=== PATIENT | male | born 1985 | race Caucasian/White ===

== ENCOUNTER 2020-11-02 12:04 | Emergency (ER) | payer OTHER, SELFPAY ==
[2020-11-02 12:14] VITALS: BP 183/120; PULSE 72; RESP 18; TEMP 36.6; O2SAT 100
--- NOTE | 2020-11-02 12:37 | ED.GENADULT ---
HPI - General Adult General Chief complaint: Unspecified Stated complaint: 5 days in hosp and out of meds Time Seen by Provider: 11/02/20 12:37 Source: patient and RN notes reviewed Mode of arrival: ambulatory Limitations: no limitations History of Present Illness HPI narrative: 35 year old male presents to city hospital care with stated need for refills on his blood pressure medications with last refills noted on medication history on 09/16/2020 with Atenolol and Insulin lispro filed on 10/19/20. Patient states that he was in the hospital for 5 days at [facility] and the last refills came from hospitalist doctor at [facility]. He states that he use to be under Dr Olivas 's care but he fired him and has not established new provider. Patient has no discharge papers from [facility] and medication history noted from various providers for the past few months. Patient's blood pressure elevated above 180/100 and can not tell when he took last doses of bottles of medications he has. 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 Discussed importance of maintaining PCP to keep medications filled and compliance with medications importance. Patient states that he has anxiety and can't go on internet to find a doctor needs a list so he can call. Related Data Home Medications Medication Instructions Recorded Confirmed atenolol 50 mg PO DAILY 11/02/20 11/02/20 insulin lispro 8 unit SUBCUT TID 11/02/20 11/02/20 tamsulosin 0.4 mg PO DAILY 11/02/20 11/02/20 Allergies Allergy/AdvReac Type Severity Reaction Status Date / Time No Known Allergies Allergy Verified 11/02/20 12:42 Review of Systems Review of Systems: Narrative: CONSTITUTIONAL: Denies fever, chills, or sweats. EYES: Denies visual changes, redness, or discharge. ENT: Denies rhinorrhea, congestion, sore throat, or otalgia. CARDIOVASCULAR: Denies chest pain, palpitations, or edema. RESPIRATORY: Denies cough or dyspnea. GASTROINTESTINAL: Denies abdominal pain, nausea, vomiting, or diarrhea, states past stomach issues but not taking any stomach medicine now, states that his BUN and Creatine were elevated when he was in hospital. GENITOURINARY: Denies dysuria or hematuria. SKIN: Denies rash or itching. MUSCULOSKELETAL: Denies back pain, joint pain, or myalgia. NEUROLOGIC: Denies headache, numbness, or weakness. PSYCHIATRIC: Positive history of anxiety or depression. All systems reviewed & are unremarkable except as noted in HPI and below PMFSH Past Medical History Medical History (Updated 11/02/20 @ 14:00 by Jasmyn Gross NP) Anxiety Diabetes type 1, uncontrolled Hypertension Migraines Surgical History Surgical History (Updated 11/02/20 @ 13:58 by Jasmyn Gross NP) No history of previous surgery Social History Social History (Updated 11/02/20 @ 13:57 by Jasmyn Gross NP) Smoking status: Current every day smoker Tobacco type: cigarettes Alcohol intake: unknown Substance use: current Substance use type: marijuana Gender identity (if verbalized by the patient): Male Comments At time of signature, agree with nursing past medical, surgical, social history. There is no relevant family history pertinent to the presenting complaint Exam Narrative: Exam Narrative: GENERAL:Pale-appearing, failrly-nourished, and in mild acute distress. HEAD: Normocephalic, atraumatic. EYES: PERRLA and EOMI.wears glasses ENT: Nares clear, no rhinorrhea or epistaxis. Mucous membranes moist. NECK: Supple.no lymphadenopathy CHEST: Clear to auscultation. No respiratory distress.SAO2 100% HEART: Regular rate and rhythm. No murmur heard. Normal peripheral pulses. ABDOMEN: Soft, nontender, nondistended, normal active bowel sounds. EXTREMITIES: Normal range of motion. No edema.
[2020-11-02 12:42] VITALS: O2SAT 100
[2020-11-02 12:43] VITALS: BP 183/120; PULSE 72; RESP 18; TEMP 36.6
--- NOTE | 2020-11-02 13:10 | PC.NURSE ---
1300- pt signed medical records release for us to fax over to [facility] in [place]. faxed release over. AGRICULTURE INSTRUCTOR aware.
== END 2020-11-02 13:17 | disposition left against medical advice (07) ==
PROVIDERS: Emergency Provider Registered Nurse
DX: I10 Essential (primary) hypertension (principal); E10.9 Type 1 diabetes mellitus without complications; F17.210 Nicotine dependence, cigarettes, uncomplicated
CPT/HCPCS: 99211; G0463

== ENCOUNTER 2021-02-21 15:00 | Outpatient (RCR) | payer OTHER, SELFPAY ==
--- NOTE | 2021-02-18 14:42 | STOPEVAL ---
SPEECH THERAPY INITIAL EVALUATION AND DISCHARGE: Thank you for referring Juarez Clark to [facility] Upon completion of evaluations, no OP Speech Therapy is deemed necessary. Please review, sign, date and return this plan of care/discharge DEZ. I agree with and certify that the following plan of care is medically necessary. Referring Physician Date Attending Provider: PHYSICIAN NOT ON STAFF Outpatient Past Medical History Past Medical History Source of Past Medical History Patient Neurological History Hx Cerebrovascular Accident (CVA) Yes: (R) Basal Ganglia Hx Migraine Yes Cardiovascular History Hx Hypertension Yes Respiratory History Hx Other Respiratory Disorders Yes: uses an inhaler (new); recent intubation after CVA; c /o SOB Gastrointestinal History Hx Gastroesophageal Reflux Disease Yes Genitourinary History Hx Renal Disease Yes: recent a/w CVA; CKD Musculoskeletal History Hx Other Musculoskeletal Disorders Yes: reports back problems as reason he can't work at previous job Endocrine History Hx Diabetes Yes: Type 1 Hx Insulin Pump Yes Psychosocial History Hx Anxiety Yes Hx Depression Yes Hx Support Problems Yes Hx Other Psychiatric Disorders Yes: on discharge from recent hospitalization, counseling was recommended Evaluation Information Problem Diagnosis CVA Onset November 2020 Additional Evaluation Detail substance abuse-cocaine & marijuana; Inpatient rehab recommended counseling for anxiety. Subjective Information pleasant but labile; pt is Query Text:As Reported By Patient/ able to explain previous Family medications and PMH. Previous Treatments Previous Treatments For This Problem Inpatient rehab at [facility] Prior Level of Function Activity Level (Last 3 Months) Occupation unemployed Hand Dominance Left Driving Yes Home Setting Home Type House Living Situation With Parent Support Available Local Family Support Cargiver Responsibilities Comment Per discharge summary from recent hospitalization: ([facility] ): couch hopper ; lives with dad but its not a permanent thing ; Prior Swallow Level Prior Intake Method Oral Prior Diet Regular (Level 7 Diet) Prior Liquid Consistency
--- NOTE | 2021-02-18 18:09 | PTOPEVAL ---
PHYSICAL THERAPY EVALUATION Thank you for referring Juarez Clark to [facility].? Juarez was evaluated for the dx of CVA. The patient is scheduled to be seen for therapy?2 x/week for 4 weeks. Please review, sign, date and return this plan of care DEZ. I agree with and certify that the following plan of care is medically necessary. Referring Physician Date Attending Provider: Dr. Kamini Purdy *PT Outpatient Evaluation Start: 02/18/21 14:12 Freq: Status: Active Protocol: Document 02/18/21 14:12 MLV (Rec: 02/18/21 15:14 MLV [id number]) Therapy Assessment Status Assessment Status Evaluation Evaluation Information Problem Diagnosis CVA Additional Evaluation Detail Patient reports having a CVA about 2-3months ago and got out of the hospital 1 1/2 wks ago. Patient denies defecits to balance or strength prior to CVA and now has balance deficit and leg weakness with a decrease in endurance. Patient has a treadmill but has not used it yet since CVA. Subjective Information Pt has a hx of illicit drug Query Text:As Reported By Patient/ abuse and reports loss of his Family 2 year old daughter prior to drug addiction. Patient currently is not using drugs. Prior Level of Function Home Setting Home Type House,Multiple Levels Environmental Barriers Railing, Ascend Left Living Situation Alone Support Available Local Family Support Cargiver Responsibilities Comment family helps for transportation Mobility Assistive Devices (Used Last 3 None Months) Pain Assessment Timing of Pain Assessment Timing of Pain Assessment Assessment Self Report Self Report Pain Level 0 Pain Score Pain Score 0: Self Report Lower Extremity Range of Motion General Lower Extremity Range of Motion Reason Not Measured WNL/Left,WNL/Right Lower Extremity Muscle Strength Testing General Lower Extremity Strength Reason Not Measured WNL/Left,WNL/Right Gross Lower Extremity Strength isometric tests 5/5. Hip hike left 3-/5, right 3+/5. Posture Posture Standing Position Posture Evaluation View all Head/C-Spine Posture Forward Head Thoracic Spine Posture Neutral Lumbar Spine Posture Flattened,Decreased Lordosis Shoulder Posture (L) Rounded,(R) Rounded,(L) Forward,(R) Forward Scapula Pos
--- NOTE | 2021-02-25 13:38 | PCPTNOTE ---
Patient did not show up for scheduled appointment this date; called and left voicemail for reminder on next appointment.
--- NOTE | 2021-02-27 09:25 | PCPTNOTE ---
Patient cancelled scheduled appointment this date due to personal request.
--- NOTE | 2021-03-04 15:07 | PCPTNOTE ---
Patient did not show up for scheduled appointment this date; called and left voicemail for next appointment on 03/06/21 @ 2pm.
--- NOTE | 2021-03-06 14:30 | PCPTNOTE ---
Patient did not show up for scheduled appointment this date; left voicemail for reminder call for appointment on the . PT is aware of patient's two no show at this time.
--- NOTE | 2021-03-11 13:48 | PCPTNOTE ---
PHYSICAL THERAPY DISCHARGE Admitting Provider: Attending Provider: PHYSICIAN NOT ON STAFF Patient:Juarez Clark Date of :1985 Patient has not returned for any further treatments since 02/21/2021, therefore he will be discharged at this time. Patient?s initial visit was on 02/18/2021 13:00 and he had a total of 2 visits. The goals have not been met. Thank you for referring this patient to [facility]. Please review, sign, date and return this discharge summary DEZ. I have been updated about the patient's current status and I agree with discharge from the above service at this time. Referring Physician Date
--- NOTE | 2021-03-11 13:49 | PCPTNOTE ---
Patient did not show up for scheduled appointment this date.
== END 2021-03-12 08:14 | disposition home or self-care (01) ==
LOC: ANHPT 15:00
PROVIDERS: PCP Internal Medicine
DX: I63.9 Cerebral infarction, unspecified (principal)
CPT/HCPCS: 92523; 92610; 97110; 97162

== ENCOUNTER 2023-01-16 09:44 | Inpatient (IN) | payer MEDICARE, MEDICAID, SELFPAY ==
[2023-01-16] VITALS (25 sets, daily range): BP systolic 186–230; BP diastolic 92–128; PULSE 77–87; RESP 14–23; TEMP 36–37.2; O2SAT 92–100; BMI 23.9
--- NOTE | ~2023-01-16 | XR_ITS ---
Clinical Indication: Shortness of breath PA and lateral views of the chest: Comparison: None Findings: Tracheostomy cannula and right-sided central venous line are in satisfactory positions. Pro bable minimal bibasilar pulmonary edema, with small bilateral pleural effusions. Cardiomediastinal s ilhouette is prominent. Bones and soft tissues are unremarkable. Impression: Support tubes, as above. Probable minimal bibasilar pulmonary edema, with small bilateral pleural effusions. Reviewed, dictated and finalized at location M. OR BUSINESS OBJECTS DEVELOPER Impression: Support tubes, as above. Probable minimal bibasilar pulmonary edema, with small bilateral pleural effusi ons.
--- NOTE | ~2023-01-16 | CT_ITS ---
EXAMINATION: CT brain wo con DATE: 01/16/2023 11:15 INDICATION: Headache. CHF. End-stage renal disease. CVA TECHNIQUE: Computed tomography (CT) of the head was performed without intravenous contrast. The dose- length product was 605.33 mGy-cm. COMPARISON: None FINDINGS: Mild generalized accelerated atrophy. Paranasal sinuses and mastoids are pneumatized. No de pressed skull fractures. No acute intracranial hemorrhage, infarction, mass or mass effect. IMPRESSION: 1. No acute intracranial abnormality. Reviewed, dictated and finalized at location B. WILL REPRESENTATIVE
--- NOTE | 2023-01-16 09:56 | ECG_ITS ---
Measurements Intervals [place] Rate: 80 P: 57 WY: 96 QRS: -50 QRSD: 117 T: 89 QT: 395 QTc: 457 Interpretive Statements SINUS RHYTHM WITH SHORT WY INTERVAL POSSIBLE LEFT ATRIAL ENLARGEMENT [-0.1mV P WAVE IN V1/V2] LEFT ANTERIOR FASCICULAR BLOCK [QRS AXIS <= -45, QR IN I, RS IN II] NONSPECIFIC T-WAVE ABNORMALITY NO PREVIOUS ECG AVAILABLE FOR COMPARISON Electronically Signed On 01-16-2023 15:30:07 ETL SOFTWARE ENGINEER by Cesar Hernandez M.D.
--- NOTE | 2023-01-16 10:41 | PC.NURSE ---
patient states that he has is out of medicine and cannot afford any right now
--- NOTE | 2023-01-16 10:53 | ED.GENADULT ---
HPI - General Adult General Chief complaint: Shortness of Breath/Dyspnea Stated complaint: missed dialysis, HTN, SOB Time Seen by Provider: 01/16/23 10:28 Source: patient Mode of arrival: ambulatory Limitations: no limitations History of Present Illness HPI narrative: This is a 37-year-old male with PMH of CVA, ESRD, insulin dependent DM, CHF, who presents to the ED with chief complaint of dyspnea and headache x3 days. Patient states he goes to dialysis Mondays, Wednesdays, Fridays. He missed his Thursday dialysis and came to the ED today because of transportation issues. States he has recently switched insurances and he has been unable to get transportation to his dialysis center. He has been out of his medications for several days. He has a tracheostomy that was placed many years ago after complicated intubation. He also states that he feels he needs his tracheostomy cleaned, but has been unable to get any new supplies for this. Also has concerns for high blood pressure. Denies chest pain, fevers, chills, abdominal pain, nausea, vomiting. Related Data Home Medications Medication Instructions Recorded Confirmed atenolol 50 mg tablet 50 mg PO DAILY 11/02/20 11/02/20 insulin lispro 100 unit/mL 8 unit subcut TID 11/02/20 11/02/20 subcutaneous solution tamsulosin 0.4 mg capsule 0.4 mg PO DAILY 11/02/20 11/02/20 Allergies Allergy/AdvReac Type Severity Reaction Status Date / Time No Known Allergies Allergy Verified 11/02/20 12:42 Review of Systems Review of Systems: CONSTITUTIONAL: Denies fever, chills, or sweats. EYES: Denies visual changes, redness, or discharge. ENT: Denies rhinorrhea, congestion, sore throat, or otalgia. CARDIOVASCULAR: Denies chest pain, palpitations, or edema. RESPIRATORY: Endorses dyspnea. Also endorses cough but this is longstanding with tracheostomy tube. GASTROINTESTINAL: Denies abdominal pain, nausea, vomiting, or diarrhea. GENITOURINARY: Denies dysuria or hematuria. SKIN: Denies rash or itching. MUSCULOSKELETAL: Denies back pain, joint pain, or myalgia. NEUROLOGIC: Endorses headache. denies LOC, numbness, dizziness, or weakness. PSYCHIATRIC: Denies anxiety or depression. [facility] Past Medical History Medical History (Updated 01/16/23 @ 12:24 by Sundar Krause PA-C) Anxiety Diabetes type 1, uncontrolled Hypertension Migraines Surgical History Surgical History (Updated 11/02/20 @ 13:58 by Jasmyn Gross NP) No history of previous surgery Social History Social History (Updated 11/02/20 @ 13:57 by Jasmyn Gross NP) Smoking status: Current every day smoker Tobacco type: cigarettes Alcohol intake: unknown Substance use: current Substance use type: marijuana Gender identity (if verbalized by the patient): Male Exam Narrative: GENERAL: Well-appearing, well-nourished, and in no acute distress. HEAD: Normocephalic, atraumatic. EYES: PERRLA and EOMI. ENT: Nares clear, no rhinorrhea or epistaxis. Mucous membranes moist. Oropharynx without tonsillar hypertrophy exudate or other lesions. NECK: Supple. No adenopathy or masses. CHEST: No respiratory distress. No wheezes rales or rhonchi. Crackles heard in the right middle lung field. Breath sounds are distant in the bibasilar lung george. Otherwise breath sounds are intact. He is satting 99% breathing room air through tracheostomy tube. HEART: Regular rate and rhythm. No murmur heard. Normal peripheral pulses. ABDOMEN: Soft, nontender, nondistended, normal active bowel sounds. EXTREMITIES: Normal range of motion. 2+ pitting edema to the midcalf bilaterally. SKIN: Warm, dry, no rash. NEURO: Alert and oriented x3. No focal deficits. Cranial nerves II through XII intact. Coordination intact. PSYCH: Normal mood and affect. Course Course Emergency Course: 1137: Spoke with Dr. Ellis (nephrology) recommends admission for dialysis. He will consult. Vital Signs Vital signs: Vital Signs Temperature
[2023-01-16 11:07] LABS: Glucose Point of Care 221 mg/dl (65-105)
[2023-01-16 11:14] LABS: Basophils Absolute Auto 0.1 K/mm3 (0.0-0.1); Eosinophils Absolute Auto 0.4 K/mm3 (0-0.3); Eosinophils Percent Auto 5.3 % (0-4.4); Hematocrit 26.9 % (42.0-52.0); Hemoglobin 8.6 g/dL (14.0-18.0); Immature Granulocyte Absolute 0.04 K/mm3 (0.00-0.031); Immature Granulocyte Percent A 0.6 % (0-0.5); Lymphocytes Absolute Auto 1.26 K/mm3 (0.9-3.2); Lymphocytes Percent Auto 18.9 % (18.3-44.2); Mean Corpuscular Hemoglobin 28.7 pg (26-34); Mean Corpuscular Volume 89.7 fl (80-100); Mean Platelet Volume 10.7 fl (7.4-10.4); Monocytes Absolute Auto 0.6 K/mm3 (0.1-0.6); Monocytes Percent Auto 8.4 % (2.6-8.5); Neutrophils Absolute Auto 4.3 K/mm3 (1.3-6.7); Neutrophils Percent Auto 64.8 % (45.5-73.1); Platelet Count Result 264 k/mm3 (150-375); Red Cell Distribution Width 14.6 % (11.5-14.5); White Blood Count 6.7 K/mm3 (4.5-10.0)
--- NOTE | 2023-01-16 11:14 | PC.NURSE ---
Patient stated I'm not really homeless, but right now I am living on my jeanna's couch .
--- NOTE | 2023-01-16 11:18 | PC.NURSE ---
Patient arrived with dialysis catheter in right chest intact
--- NOTE | 2023-01-16 11:18 | PC.NURSE ---
report received from Yusef EAGLE at this time including history and physical and plan of care
[2023-01-16] MEDS: METOPROLOL SUCCINATE EXT REL 100 MG TABCR PO (11:41)
[2023-01-16] MEDS: cloNIDine HCL 0.1 MG TABLET PO ×2 (11:41→20:08)
[2023-01-16 11:47] LABS: Alanine Aminotransferase 24 U/L (6-50); Albumin Level 4.5 g/dL (3.5-5.1); Alkaline Phosphatase 117 U/L (38-126); Anion Gap 16 mmol/L (8-16); Aspartate Amino Transferase 35 U/L (17-59); Bilirubin,Total 0.6 mg/dL (0.2-1.3); Blood Urea Nitrogen 105 mg/dL (9-20); Calcium 8.8 mg/dL (8.4-10.2); Carbon Dioxide 22 mmol/L (22-30); Chloride 98 mmol/L (98-107); Estimated CRCL calculation 7 ml/min; Estimated Glomerular Filt Rate 4; Glucose 221 mg/dL (65-110); Potassium 6.3 mmol/L (3.4-5.0); Sodium 136 mmol/L (137-145)
[2023-01-16 12:06] LABS: Influenza A QL RT-PCR Negative (Negative); Influenza B QL RT-PCR Negative (Negative); SARS-CoV-2 RNA PCR Negative
[2023-01-16] MEDS: DEXTROSE 50% 25 GM/50 ML SYRINGE IV PUSH (12:35)
[2023-01-16] MEDS: CALCIUM GLUC 1,000 MG/NS 50 ML 1,000 MG/50 ML BAG 100 MG IVPB (12:36)
[2023-01-16] MEDS: INSULIN HUMAN REGULAR (*BKC) 100 UNITS/ML 9 UNITS IV PUSH (12:36)
--- NOTE | 2023-01-16 12:48 | PC.NURSE ---
Food tray ordered at 1519
--- NOTE | 2023-01-16 13:23 | PC.NURSE ---
Checked on patient, BP elevated at 221/118. Pt eating at this time. No distress Primary nurse and KANCHAN Kwok aware.
--- NOTE | 2023-01-16 14:00 | PC.NURSE ---
Patient to dialysis at this time
[2023-01-16 14:07] LABS: Hepatitis B Surface Antigen Negative (Negative)
[2023-01-16 14:25] LABS: Hepatitis B Surface Anti Res Negative
--- NOTE | 2023-01-16 14:40 | PM.CNNEP ---
Assessment and Plan Assessment and plan (1) End stage renal disease: Code(s): N18.6 - End stage renal disease Status: Chronic Assessment and Plan: HD today and continue M/W/F dialysis schedule plan HD tomorrow since he missed another session earlier this week follow electrolytes, volume status, and clearance (2) Hyperkalemia: Code(s): E87.5 - Hyperkalemia Status: Acute Assessment and Plan: due to missed dialysis treatments HD today and tomorrow should help stabilize this issue follow trend (3) Volume overload: Code(s): E87.70 - Fluid overload, unspecified Status: Acute Assessment and Plan: due to missed dialysis treatments fluid removal today and tomorrow with HD follow volume status (4) Hypertensive urgency: Code(s): I16.0 - Hypertensive urgency Status: Acute Assessment and Plan: due to missed BP medications as well as dialysis home medications resumed fluid rmeoval with dialysis may help adjust/titrate BP medications as needed (5) Anemia: Code(s): D64.9 - Anemia, unspecified Status: Chronic Assessment and Plan: due to ESRD dose with Epogen with HD (once BP comes down) follow H/H (6) Type 1 diabetes mellitus: Code(s): E10.9 - Type 1 diabetes mellitus without complications Status: Chronic Assessment and Plan: follow accuchecks glyceming control per hospitalists Will continue to follow. History of Present Illness Reason for Consult Consult date: 01/16/23 Reason for consult: end stage renal disease Chief Complaint Chief complaint: ESRD,Pleural Effusion,Hyperkalemia,Hyperglycemia History of Present Illness Narrative: The patient is a 37-year-old male with a past medical history as outlined below who presented to [facility] Emergency room for further evaluation of high blood pressure and shortness of breath. The patient reportedly missed his dialysis treatment on Thursday and subsequently today due to transportation issues secondary to a changes in his medical insurance. The change in his medical insurance apparently has also affected his ability to get his prescriptions for his chronic medical issues including his hypertension. He apparently has been out of his blood pressure medication since earlier this week. He has noted that over the course of the last few days he has been more short of breath and having significant headaches which she attributes to his high blood pressure. Given these symptoms, he presented to the emergency room for further assessment. Workup and evaluation emergency room demonstrated his blood pressure to be quite elevated and that greater than 200 systolic range and routine blood test demonstrated labs consistent with his known history of end-stage renal disease although his BUN and creatinine as well as the potassium required elevated presumably secondary to his missed dialysis treatments. A CT scan of his brain did not show any type of acute intracranial abnormality and his chest x-ray showed bibasilar pulmonary edema and small bilateral place using this. He was given medical management for his hyperkalemia and IV medications for his blood pressure and was subsequently admitted to the hospital for urgent hemodialysis an effort to correct his laboratory abnormalities and potentially help his blood pressure as well. At the time of my visit, he is receiving dialysis and appears to be tolerating it fairly well (he was seen on dialysis at 2:30 p.m). Apparently, he has been having ongoing issues with trying to set up transportation for dialysis as apparently he was just hospitalized at [facility] for similar issues and required renal replacement therapy/dialysis to stabilize his volume status and blood pressure prior to discharge. It would seem that prior to discharge, the issues with regard to his living situation and transportation were
[2023-01-16] MEDS: EPOETIN ALFA-EPBX 10,000 UNITS/ML VIAL 10000 UNITS IV PUSH (17:25)
[2023-01-16] MEDS: SODIUM CHLORIDE 0.9% IV 1,000 ML 999 ML IV CONT (17:26)
--- NOTE | 2023-01-16 18:55 | PC.NURSE ---
Patient back from dialysis at this time
--- NOTE | 2023-01-16 19:00 | PM.IMHP ---
H&P: HPI History of Present Illness Date/Time: 01/16/23 19:00 Chief Complaint: High blood pressure and shortness of breath after missing dialysis. Narrative: This is an unfortunate 37-year-old male with history of stroke, type 1 diabetes mellitus, and end-stage renal disease on hemodialysis who presented to the emergency department from home for evaluation of high blood pressure and shortness of breath after missing dialysis. Patient provides the following history. He missed dialysis on Thursday and again this morning due to transportation issues and reportedly he has had issues with his insurance pain for medical car to and from dialysis. He has also had issues filling all of his prescriptions and he has been without medications since Thursday as he cannot afford to have them filled at this time. Over the last couple of days he has become increasingly short of breath and he has a severe, diffuse pounding headache which he attributes to his high blood pressures. His blood pressure has been as high as 230/120 since arrival to the ED. pertinent labs include a sodium of 136, potassium 6.3, BUN 105, creatinine 14.30, glucose 221. Brain CT showed no acute intracranial abnormality. Chest x-ray showed minimal bibasilar pulmonary edema and small bilateral pleural effusions. He was sent for urgent dialysis and reports having 3.5 L taken off today which is typical for him. He continues to have the headache and blood pressures are still over 200 systolic. He denies fever, chills, sweats, cold and flu symptoms, vertigo, focal weakness, paresthesias, facial droop, difficulty speaking and swallowing, chest pain, current shortness of breath, nausea, vomiting, diarrhea, and dysuria. Review of Systems Review of Systems: Twelve systems were reviewed and are negative except for as per HPI. [facility] Past Medical History Medical History (Updated 01/16/23 @ 23:21 by Lydia Sim PA-C) Anxiety (04/2021) Cerebrovascular accident Depression End-stage renal disease on hemodialysis Heart failure, type unknown Hypertension Migraines Retinal detachment Blind in right eye. Type 1 diabetes mellitus Surgical History Surgical History (Updated 01/16/23 @ 23:18 by Lydia Sim PA-C) History of tonsillectomy and adenoidectomy History of tracheostomy (04/2021) Family History Family History Mother Diabetes mellitus Celiac disease Breast cancer Social History Social History (Updated 01/16/23 @ 23:19 by Lydia Sim PA-C) Social History: Surrogate medical decision maker: Neyda Mcdonnell, mother. Code status: Do not resuscitate. Smoking packs per day: 1 Smoking cigarettes per day: 20.0 Years smoked: 19 Smoking pack-years: 19.00 Smoking status: Former smoker Tobacco type: cigarettes Alcohol intake: never Substance use: never Substance use type: marijuana Lack of Transportation: YES Lack of Food: Never True Current Housing: I Do Not Have Housing Concerned About Future Housing: YES Difficulty Paying Gas/Electric Bills: No Difficulty Paying for Meds: YES Currently Unemployed: No Education: Associate Degree Difficulty w/ Childcare or Family Care: No Additional living arrangements comments: Currently staying with a friend in the area. Spiritual care concerns: No Meds Home Medications and Allergies Home Medications Medication Instructions Recorded Confirmed Type alprazolam 1 mg tablet 1 mg PO PRN PRN Anxiety 01/16/23 01/16/23 History aspirin 81 mg tablet,delayed 81 mg PO DAILY 01/16/23 01/16/23 History release atorvastatin 40 mg tablet 40 mg PO DAILY 01/16/23 01/16/23 History clonidine HCl 0.2 mg tablet 0.2 mg PO BID 01/16/23 01/16/23 History furosemide 80 mg tablet 80 mg PO DAILY 01/16/23 01/16/23 History gabapentin 300 mg capsule 300 mg PO DAILY 01/16/23 01/16/23 History hydralazine 100 mg tablet 100 mg PO TID 01/16/23 01/16/23
[2023-01-16] MEDS: LOSARTAN POTASSIUM 50 MG TABLET PO (20:08)
[2023-01-16] MEDS: HYDROcodone/acetaminophen (*CRX) 5-325 MG TABLET 1 TAB PO (20:11)
[2023-01-16 21:20] LABS: Anion Gap 11 mmol/L (8-16); Blood Urea Nitrogen 44 mg/dL (9-20); Carbon Dioxide 30 mmol/L (22-30); Chloride 94 mmol/L (98-107); Estimated CRCL calculation 14 ml/min; Estimated Glomerular Filt Rate 9; Glucose 217 mg/dL (65-110); Potassium 4.5 mmol/L (3.4-5.0); Sodium 135 mmol/L (137-145)
--- NOTE | 2023-01-16 21:49 | PC.NURSE ---
This patient, Juarez Clark, was admitted to IMU Room 206-01 on 01/16/23 at 2115. Patient/family oriented to hospital policies and general routines including ID bracelet, bed and alarms, visiting hours, pain management, procedures, bathroom and other care routines, personal items, smoking policy, room service/diet, and visiting hours. Information on how to activate the Rapid Response Team has been discussed. Patient/Family are encouraged to report perceived risks to care and to ask questions if they do not understand what they are told or what they should do.
[2023-01-16 23:46] LABS: Glucose Point of Care 371 mg/dl (65-105)
[2023-01-17] VITALS (27 sets, daily range): BP systolic 156–214; BP diastolic 11–120; PULSE 68–88; RESP 16–20; TEMP 35.9–36.9; O2SAT 91–97
--- NOTE | 2023-01-17 00:11 | PC.NURSE ---
Blood cultures ordered due to patient being admitted with an indwelling dialysis catheter. Patient refuses cultures. POC [id number], Lydia HEMPHILL notified, see orders.
[2023-01-17] MEDS: INSULIN ASPART (*BKC) 100 UNITS/ML 8 UNITS SUB-Q (00:32)
[2023-01-17] MEDS: TOPIRAMATE 25 MG TABLET 50 MG PO ×3 (00:32→21:00)
[2023-01-17] MEDS: INSULIN GLARGINE (*BKC) 100 UNITS/ML 12 UNITS SUB-Q ×2 (00:33→21:01)
--- NOTE | 2023-01-17 04:28 | PC.NURSE ---
Patient is refusing AM lab draw. States he was told he is getting dialysis today, and if they need labs, they can draw them from his dialysis access. Advised the MD is going to want to see the labs before getting dialysis, but the patient continues to refuse.
[2023-01-17 06:37] LABS: Glucose Point of Care 76 mg/dl (65-105)
[2023-01-17 08:11] LABS: Glucose Point of Care 122 mg/dl (65-105)
[2023-01-17] MEDS: GABAPENTIN 300 MG CAPSULE PO (08:37)
[2023-01-17] MEDS: SEVELAMER CARBONATE 800 MG TABLET PO ×3 (08:37→16:57)
[2023-01-17] MEDS: minoxidiL 2.5 MG TABLET 5 MG PO ×2 (08:37→16:58)
[2023-01-17] MEDS: cloNIDine HCL 0.2 MG TABLET PO ×2 (08:38→16:59)
[2023-01-17] MEDS: ATORVASTATIN 40 MG TABLET PO (08:38)
[2023-01-17] MEDS: NIFEdipine 30 MG TAB.ER.24 60 MG PO (08:38)
[2023-01-17] MEDS: hydrALAZINE HCL 50 MG TABLET 100 MG PO ×3 (08:38→16:59)
[2023-01-17] MEDS: ASPIRIN 81 MG ENTERIC TABLET PO (08:39)
[2023-01-17] MEDS: METOPROLOL SUCCINATE EXT REL 100 MG TABCR PO (08:39)
[2023-01-17] MEDS: LOSARTAN POTASSIUM 50 MG TABLET PO (08:39)
[2023-01-17] MEDS: hydrOXYzine pamoate 25 MG CAPSULE PO (08:39)
[2023-01-17] MEDS: FUROSEMIDE 80 MG TABLET PO (08:40)
[2023-01-17 10:07] LABS: Alanine Aminotransferase 23 U/L (6-50); Albumin Level 3.8 g/dL (3.5-5.1); Alkaline Phosphatase 107 U/L (38-126); Anion Gap 10 mmol/L (8-16); Aspartate Amino Transferase 27 U/L (17-59); Bilirubin,Total 0.5 mg/dL (0.2-1.3); Blood Urea Nitrogen 54 mg/dL (9-20); Calcium 7.9 mg/dL (8.4-10.2); Carbon Dioxide 30 mmol/L (22-30); Chloride 96 mmol/L (98-107); Estimated CRCL calculation 12 ml/min; Estimated Glomerular Filt Rate 7; Glucose 176 mg/dL (65-110); Potassium 5.1 mmol/L (3.4-5.0); Sodium 136 mmol/L (137-145)
[2023-01-17 10:20] LABS: Hematocrit 26.6 % (42.0-52.0); Hemoglobin 8.5 g/dL (14.0-18.0); Mean Corpuscular Hemoglobin 28.9 pg (26-34); Mean Corpuscular Volume 90.5 fl (80-100); Mean Platelet Volume 10.8 fl (7.4-10.4); Platelet Count Result 271 k/mm3 (150-375); Red Blood Count 2.94 M/mm3 (4.6-6.20); Red Cell Distribution Width 14.9 % (11.5-14.5); White Blood Count 5.9 K/mm3 (4.5-10.0)
[2023-01-17] MEDS: EPOETIN ALFA-EPBX 10,000 UNITS/ML VIAL 10000 UNITS IV PUSH (11:17)
[2023-01-17] MEDS: SODIUM CHLORIDE 0.9% IV 1,000 ML 999 ML IV CONT (11:18)
[2023-01-17 11:28] LABS: Hemoglobin A1C 8.8 % (<5.7)
--- NOTE | 2023-01-17 11:54 | PM.IMPN ---
Progress Note: A&P Assessment and Plan (1) Volume overload: Code(s): E87.70 - Fluid overload, unspecified Status: Acute (2) Hypertensive urgency: Code(s): I16.0 - Hypertensive urgency Status: Acute (3) Heart failure, type unknown: Code(s): I50.9 - Heart failure, unspecified Status: Acute (4) Hyperkalemia: Code(s): E87.5 - Hyperkalemia Status: Acute (5) End-stage renal disease on hemodialysis: Code(s): N18.6 - End stage renal disease; Z99.2 - Dependence on renal dialysis Status: Acute (6) Type 1 diabetes mellitus: Code(s): E10.9 - Type 1 diabetes mellitus without complications Status: Acute Plan The patient presented to the emergency department with shortness of breath and high blood pressure after missing 2 dialysis sessions. Labs, imaging, EKG, and all reports were personally reviewed. Potassium was 6.1 on arrival and he was sent for urgent dialysis. He has since returned from dialysis and they removed 3.5 L of fluid. Electrolytes have since normalized. He continues to complain of the severe, diffuse headache and blood pressures remain over 200 systolic. As per HPI he has been out of his medications since Thursday and he will be given doses of his antihypertensives this evening to get his blood pressure down. Continue basal insulin. Initiate sliding scale insulin, Accu-Cheks, and hypoglycemic protocol. Check hemoglobin A1c. The rest of his home medications will be reviewed and resumed as appropriate. Subjective Date/time seen: 01/17/23 11:54 Feeling better Exam Narrative: General: Chronically ill-appearing gentleman sitting up in bed in no acute distress. Weight: 75.7 kg. BMI: 23.9. HEENT: PERRL, EOMI. Sclera anicteric. Oral mucosa moist. Neck: Supple. Tracheostomy in place. Respiratory: Respirations are nonlabored and he is speaking in full sentences. Lung sounds are a bit diminished at the bases but are otherwise clear to auscultation. Cardiovascular: Regular rate and rhythm with S1-S2. Chest: Dialysis catheter in the right anterior chest. Gastrointestinal: Abdomen is soft, nontender, and nondistended with positive bowel sounds. Skin: Warm and dry. No rash or lesions on limited exam. Extremities: No cyanosis or clubbing. 2+ pitting edema up to the knees. No palpable knots or cords. Peripheral pulses palpable. Neurological: Alert. Cranial nerves 2-12 are grossly intact.No gross focal deficits to casual conversation. Psychiatric: Pleasant and cooperative with normal mood and affect. Judgment and insight intact. Objective Data Vital Signs Vital Signs: Vital Signs - 24 hr 01/16/23 13:20 01/16/23 14:24 01/16/23 14:14 Temperature 98.3 F Pulse Rate 79 77 78 Respiratory Rate 17 16 Blood Pressure 221/118 H 215/122 H 210/122 H Pulse Oximetry 92 Oxygen Delivery 01/16/23 14:40 01/16/23 15:00 01/16/23 15:20 Temperature Pulse Rate 78 79 78 Respiratory Rate Blood Pressure 198/114 H 196/111 H 191/112 H Pulse Oximetry Oxygen Delivery 01/16/23 15:40 01/16/23 16:00 01/16/23 16:20 Temperature Pulse Rate 79 79 78 Respiratory Rate Blood Pressure 209/114 H 211/119 H 205/113 H Pulse Oximetry Oxygen Delivery 01/16/23 16:40 01/16/23 17:00 01/16/23 17:20 Temperature Pulse Rate 78 79 81 Respiratory Rate Blood Pressure 199/116 H 202/119 H 223/123 H Pulse Oximetry Oxygen Delivery 01/16/23 17:40 01/16/23 18:00 01/16/23 18:20 Temperature Pulse Rate 79 85 84 Respiratory Rate Blood Pressure 211/122 H 210/128 H 205/112 H Pulse Oximetry Oxygen Delivery 01/16/23 18:27 01/16/23 18:59 01/16/23 21:15 Temperature 98.2 F 97.4 F L Pulse Rate 84 86 82 Respiratory Rate 14 20 Blood Pressure 210/119 H 204/116 H 202/102 H Pulse Oximetry 93 Oxygen Delivery 01/16/23 23:05 01/16/23 22:00 01/16/23 22:00 Temperature 97.6 F Pulse Rate 82 84 Respiratory Rate 18 B
--- NOTE | 2023-01-17 12:00 | P.PNNP_ITS ---
Progress Note: A&P Assessment and Plan (1) End stage renal disease: Code(s): N18.6 - End stage renal disease Status: Chronic Assessment and Plan: * HD today * plan next HD session on Thursday and continue // dialysis schedule * follow electrolytes, volume status, and clearance * patient care director/social work consult to help with transportation issues to outpatient dialysis (2) Hyperkalemia: Code(s): E87.5 - Hyperkalemia Status: Acute Assessment and Plan: * resolved * due to missed dialysis treatments * HD today and yesterdday should help stabilize this issue * follow trend (3) Volume overload: Code(s): E87.70 - Fluid overload, unspecified Status: Acute Assessment and Plan: * improving * due to missed dialysis treatments * fluid removal today and yesterday with HD * follow volume status (4) Hypertensive urgency: Code(s): I16.0 - Hypertensive urgency Status: Acute Assessment and Plan: * beter * due to missed BP medications as well as dialysis * home medications resumed * fluid rmeoval with dialysis may help * adjust/titrate BP medications as needed - will increase nifedipine to 90mg qday (5) Anemia: Code(s): D64.9 - Anemia, unspecified Status: Chronic Assessment and Plan: * due to ESRD * dose with Epogen with HD * follow H/H (6) Type 1 diabetes mellitus: Code(s): E10.9 - Type 1 diabetes mellitus without complications Status: Chronic Assessment and Plan: * follow accuchecks * glyceming control per hospitalists Will continue to follow. Subjective Date/time seen: 01/17/23 12:00 Tolerated dialysis treatment yesterday as well as at the time of my visit (seen on HD at 11:50AM); breathing/respiratory status remains relatively stable; BP still somewhat erratic but better in comparison to admission; major complaint currently is that of a headache. Exam Narrative: General: WD/WN male in NAD Heart: normal S1 and S2; no rub Lungs: decrease at bases Abdomen: soft, nontender, nondistended, positive bowel sounds Extremities: no cyanosis or clubbing; no edema Skin: warm and dry Objective Data Vital Signs Vital Signs: Vital Signs Temp Pulse Resp BP Pulse Ox O2 Del Method O2 Flow Rate 01/17/23 12:00 98.5 F 78 20 185/11 H 91 01/17/23 11:50 77 179/98 H 01/17/23 11:30 77 167/86 H 01/17/23 11:10 81 172/74 H 01/17/23 10:50 80 174/106 H 01/17/23 10:30 79 177/98 H 01/17/23 10:10 78 173/98 H 01/17/23 09:50 81 206/120 H 01/17/23 09:30 78 194/116 H 01/17/23 08:55 98.3 F 78 17 214/101 H 01/17/23 09:06 79 204/120 H 01/17/23 08:39 68 01/17/23 08:00 98.2 F 80 16 199/113 H 97 01/17/23 06:00 88 01/17/23 04:00 93 Room Air 01/17/23 04:00 79 01/17/23 04:00 97.5 F L 81 20 195/86 H 93 01/17/23 02:00 82 01/17/23 00:00 94 Room Air 01/17/23 00:00 78 01/16/23 22:00 93 Room Air 01/16/23 22:00 84 01/16/23 23:05 97.6 F 82 18 186/92 H 94 01/16/23 21:15 97.4 F L 82 20 202/102 H 93 01/16/23
--- NOTE | 2023-01-17 12:00 | PM.PNNEP ---
Progress Note: A&P Assessment and Plan (1) End stage renal disease: Code(s): N18.6 - End stage renal disease Status: Chronic Assessment and Plan: HD today plan next HD session on Thursday and continue // dialysis schedule follow electrolytes, volume status, and clearance respite care provider/social work consult to help with transportation issues to outpatient dialysis (2) Hyperkalemia: Code(s): E87.5 - Hyperkalemia Status: Acute Assessment and Plan: resolved due to missed dialysis treatments HD today and yesterdday should help stabilize this issue follow trend (3) Volume overload: Code(s): E87.70 - Fluid overload, unspecified Status: Acute Assessment and Plan: improving due to missed dialysis treatments fluid removal today and yesterday with HD follow volume status (4) Hypertensive urgency: Code(s): I16.0 - Hypertensive urgency Status: Acute Assessment and Plan: beter due to missed BP medications as well as dialysis home medications resumed fluid rmeoval with dialysis may help adjust/titrate BP medications as needed - will increase nifedipine to 90mg qday (5) Anemia: Code(s): D64.9 - Anemia, unspecified Status: Chronic Assessment and Plan: due to ESRD dose with Epogen with HD follow H/H (6) Type 1 diabetes mellitus: Code(s): E10.9 - Type 1 diabetes mellitus without complications Status: Chronic Assessment and Plan: follow accuchecks glyceming control per hospitalists Will continue to follow. Subjective Date/time seen: 01/17/23 12:00 Tolerated dialysis treatment yesterday as well as at the time of my visit (seen on HD at 11:50AM); breathing/respiratory status remains relatively stable; BP still somewhat erratic but better in comparison to admission; major complaint currently is that of a headache. Exam Narrative: General: WD/WN male in NAD Heart: normal S1 and S2; no rub Lungs: decrease at bases Abdomen: soft, nontender, nondistended, positive bowel sounds Extremities: no cyanosis or clubbing; no edema Skin: warm and dry Objective Data Vital Signs Vital Signs: Vital Signs Temp Pulse Resp BP Pulse Ox O2 Del Method O2 Flow Rate 01/17/23 12:00 98.5 F 78 20 185/11 H 91 01/17/23 11:50 77 179/98 H 01/17/23 11:30 77 167/86 H 01/17/23 11:10 81 172/74 H 01/17/23 10:50 80 174/106 H 01/17/23 10:30 79 177/98 H 01/17/23 10:10 78 173/98 H 01/17/23 09:50 81 206/120 H 01/17/23 09:30 78 194/116 H 01/17/23 08:55 98.3 F 78 17 214/101 H 01/17/23 09:06 79 204/120 H 01/17/23 08:39 68 01/17/23 08:00 98.2 F 80 16 199/113 H 97 01/17/23 06:00 88 01/17/23 04:00 93 Room Air 01/17/23 04:00 79 01/17/23 04:00 97.5 F L 81 20 195/86 H 93 01/17/23 02:00 82 01/17/23 00:00 94 Room Air 01/17/23 00:00 78 01/16/23 22:00 93 Room Air 01/16/23 22:00 84 01/16/23 23:05 97.6 F 82 18 186/92 H 94 01/16/23 21:15 97.4 F L 82 20 202/102 H 93 01/16/23 18:59 98.2 F 86 14 204/116 H 01/16/23 18:27 84 210/119 H 01/16/23 18:20 84 205/112 H 01/16/23 18:00 85 210/128 H 01/16/23 17:40 79 211/122 H 01/16/23 17:20 81 223/123 H 01/16/23 17:00 79 202/119 H 01/16/23 16:40 78 199/116 H 01/16/23 16:20 78 205/113 H 01/16/23 16:00 79 211/119 H 01/16/23 15:40 79 209/114 H 01/16/23 15:20 78 191/112 H 01/16/23 15:00 79 196/111 H 01/16/23 14:40 78 198/114 H Intake/Output Intake/Output: Intake & Output 01/14/23 01/15/23 01/16/23 01/17/23 23:59 23:59 23:59 23:59 Intake Total 150 240 Output Total 3500 3000 Balance -1912 -0325 Meds/Results Medications: Active Medications Gener
[2023-01-17 12:03] LABS: Free T4 Free Thyroxine Reflex 0.96 ng/dL (0.78-2.19)
[2023-01-17 12:53] LABS: Glucose Point of Care 225 mg/dl (65-105)
[2023-01-17 13:06] LABS: Total Triiodothyronine (T3) 0.87 NG/ML (0.97-1.69)
[2023-01-17] MEDS: INSULIN ASPART (*BKC) 100 UNITS/ML SUB-Q ×2 (16:55→16:56)
[2023-01-17 16:56] LABS: Glucose Point of Care 314 mg/dl (65-105)
[2023-01-17 20:22] LABS: Glucose Point of Care 198 mg/dl (65-105)
[2023-01-17] MEDS: ALPRAZolam (*CRX) 0.5 MG TABLET 1 MG PO (21:04)
--- NOTE | 2023-01-17 21:47 | PC.NURSE ---
Patient refusing subcut Heparin for DVT prophylaxis.
[2023-01-18] VITALS (14 sets, daily range): BP systolic 144–187; BP diastolic 82–107; PULSE 70–76; RESP 14–20; TEMP 36.1–36.9; O2SAT 92–98
[2023-01-18] MEDS: INSULIN GLARGINE (*BKC) 100 UNITS/ML 12 UNITS SUB-Q (07:52)
[2023-01-18] MEDS: INSULIN ASPART (*BKC) 100 UNITS/ML SUB-Q ×4 (07:53→17:34)
[2023-01-18] MEDS: METOPROLOL SUCCINATE EXT REL 100 MG TABCR PO (07:54)
[2023-01-18] MEDS: SEVELAMER CARBONATE 800 MG TABLET PO ×3 (07:55→17:10)
[2023-01-18] MEDS: LOSARTAN POTASSIUM 50 MG TABLET PO (07:55)
[2023-01-18] MEDS: TOPIRAMATE 25 MG TABLET 50 MG PO ×2 (07:55→20:02)
[2023-01-18] MEDS: NIFEdipine 30 MG TAB.ER.24 60 MG PO (07:55)
[2023-01-18] MEDS: cloNIDine HCL 0.2 MG TABLET PO ×2 (07:56→17:09)
[2023-01-18] MEDS: hydrOXYzine pamoate 25 MG CAPSULE PO (07:56)
[2023-01-18] MEDS: GABAPENTIN 300 MG CAPSULE PO (07:56)
[2023-01-18] MEDS: hydrALAZINE HCL 50 MG TABLET 100 MG PO ×3 (07:56→17:09)
[2023-01-18] MEDS: minoxidiL 2.5 MG TABLET 5 MG PO ×2 (07:56→17:10)
[2023-01-18] MEDS: ATORVASTATIN 40 MG TABLET PO (07:56)
[2023-01-18] MEDS: FUROSEMIDE 80 MG TABLET PO (07:56)
[2023-01-18] MEDS: ASPIRIN 81 MG ENTERIC TABLET PO (07:57)
[2023-01-18 08:09] LABS: Glucose Point of Care 229 mg/dl (65-105)
--- NOTE | 2023-01-18 10:51 | PC.NURSE ---
0930: Patient refused blood draw. States, 'I know what I am doing .
--- NOTE | 2023-01-18 11:28 | PM.IMPN ---
Progress Note: A&P Assessment and Plan (1) Volume overload: Code(s): E87.70 - Fluid overload, unspecified Status: Acute Assessment and Plan: Continue hemodialysis as needed. (2) Hypertensive urgency: Code(s): I16.0 - Hypertensive urgency Status: Acute Assessment and Plan: Improved after starting hemodialysis (3) Heart failure, type unknown: Code(s): I50.9 - Heart failure, unspecified Status: Acute (4) Hyperkalemia: Code(s): E87.5 - Hyperkalemia Status: Acute Assessment and Plan: Monitor electrolytes (5) End-stage renal disease on hemodialysis: Code(s): N18.6 - End stage renal disease; Z99.2 - Dependence on renal dialysis Status: Acute (6) Type 1 diabetes mellitus: Code(s): E10.9 - Type 1 diabetes mellitus without complications Status: Chronic Subjective Date/time seen: 01/18/23 11:28 Feeling better Exam Narrative: General: Chronically ill-appearing gentleman sitting up in bed in no acute distress. Weight: 75.7 kg. BMI: 23.9. HEENT: PERRL, EOMI. Sclera anicteric. Oral mucosa moist. Neck: Supple. Tracheostomy in place. Respiratory: Respirations are nonlabored and he is speaking in full sentences. Lung sounds are a bit diminished at the bases but are otherwise clear to auscultation. Cardiovascular: Regular rate and rhythm with S1-S2. Chest: Dialysis catheter in the right anterior chest. Gastrointestinal: Abdomen is soft, nontender, and nondistended with positive bowel sounds. Skin: Warm and dry. No rash or lesions on limited exam. Extremities: No cyanosis or clubbing. 2+ pitting edema up to the knees. No palpable knots or cords. Peripheral pulses palpable. Neurological: Alert. Cranial nerves 2-12 are grossly intact.No gross focal deficits to casual conversation. Psychiatric: Pleasant and cooperative with normal mood and affect. Judgment and insight intact. Objective Data Vital Signs Vital Signs: Vital Signs - 24 hr 01/17/23 11:30 01/17/23 11:50 01/17/23 12:06 Temperature Pulse Rate 77 77 78 Respiratory Rate Blood Pressure 167/86 H 179/98 H 160/102 H Pulse Oximetry Oxygen Delivery Oxygen Flow Rate Fraction of Inspired Oxygen 01/17/23 12:15 01/17/23 12:00 01/17/23 13:30 Temperature 98.1 F 98.5 F Pulse Rate 78 78 Respiratory Rate 16 20 Blood Pressure 168/106 H 185/11 H Pulse Oximetry 91 95 Oxygen Delivery High Flow Therapy with Tr Oxygen Flow Rate 30 Fraction of Inspired Oxygen 21 01/17/23 12:00 01/17/23 14:00 01/17/23 16:00 Temperature 98.3 F Pulse Rate 77 78 73 Respiratory Rate 20 Blood Pressure 172/100 H Pulse Oximetry 97 Oxygen Delivery Oxygen Flow Rate Fraction of Inspired Oxygen 01/17/23 12:00 01/17/23 16:00 01/17/23 16:00 Temperature Pulse Rate 78 73 73 Respiratory Rate 18 20 Blood Pressure Pulse Oximetry 97 96 Oxygen Delivery High Flow Therapy with Tr High Flow Therapy with Tr Oxygen Flow Rate 0 0 Fraction of Inspired Oxygen 21 01/17/23 20:04 01/17/23 20:00 01/17/23 20:00 Temperature 97.3 F L Pulse Rate 74 75 Respiratory Rate 20 Blood Pressure 156/95 H Pulse Oximetry 96 91 Oxygen Delivery Room Air Oxygen Flow Rate Fraction of Inspired Oxygen 01/17/23 20:00 01/17/23 22:00 01/17/23 23:21 Temperature 97.3 F L Pulse Rate 75 75 Respiratory Rate 16 Blood Pressure 159/89 H Pulse Oximetry 91 94 Oxygen Delivery Room Air Oxygen Flow Rate Fraction of Inspired Oxygen 01/18/23 00:00 01/18/23 00:00 01/18/23 02:00 Temperature Pulse Rate 72 71 Respiratory Rate Blood Pressure Pulse Oximetry 94 Oxygen Delivery Room Air Oxygen Flow Rate Fraction of Inspired Oxygen 01/18/23 03:42 01/18/23 04:00 01/18/23 04:00 Temperature 97.0 F L Pulse Rate 73 73 Respiratory Rate 14 Blood Pressure 179/88 H Pulse Oximetry 92 94 Oxygen Delivery Room
[2023-01-18 12:02] LABS: Glucose Point of Care 159 mg/dl (65-105)
--- NOTE | 2023-01-18 12:47 | PM.PNNEP ---
Progress Note: A&P Assessment and Plan (1) End stage renal disease: Code(s): N18.6 - End stage renal disease Status: Chronic Assessment and Plan: HD tomorrow and continue M/W/F dialysis schedule follow electrolytes, volume status, and clearanc (2) Hyperkalemia: Code(s): E87.5 - Hyperkalemia Status: Acute Assessment and Plan: resolved due to missed dialysis treatments HD treatmens have stabilizd e this issue follow trend (3) Volume overload: Code(s): E87.70 - Fluid overload, unspecified Status: Acute Assessment and Plan: improving due to missed dialysis treatments fluid removal with dialysis follow volume status (4) Hypertensive urgency: Code(s): I16.0 - Hypertensive urgency Status: Acute Assessment and Plan: better due to missed BP medications as well as dialysis home medications resumed fluid rmeoval with dialysis may help adjust/titrate BP medications as needed - increased nifedipine to 90mg qday today (5) Anemia: Code(s): D64.9 - Anemia, unspecified Status: Chronic Assessment and Plan: due to ESRD dose with Epogen with HD follow H/H (6) Type 1 diabetes mellitus: Code(s): E10.9 - Type 1 diabetes mellitus without complications Status: Chronic Assessment and Plan: follow accuchecks glyceming control per hospitalists Will continue to follow. Subjective Date/time seen: 01/18/23 12:47 Tolerated dialysis treatment yesterday without any issues or problems; seem frustrated by his situation (issues with travel to dialysis, lack of medications, no current home...etc); no apparent distress voiced at the time of my visit; BP still fluctuating (although stress may be playing a role). Exam Narrative: General: WD/WN male in NAD Heart: normal S1 and S2; no rub Lungs: decrease at bases Abdomen: soft, nontender, nondistended, positive bowel sounds Extremities: no cyanosis or clubbing; no edema Skin: warm and intact Objective Data Vital Signs Vital Signs: Vital Signs Temp Pulse Resp BP Pulse Ox O2 Del Method O2 Flow Rate 01/18/23 12:00 75 14 Room Air 01/18/23 12:00 75 01/18/23 12:00 98.5 F 76 20 187/107 H 98 01/18/23 08:00 75 16 Room Air 01/18/23 10:00 75 01/18/23 08:00 73 01/18/23 08:00 97.5 F L 70 16 177/82 H 97 01/18/23 08:18 96 Room Air 01/18/23 07:54 71 01/18/23 06:00 71 01/18/23 04:00 94 Room Air 01/18/23 04:00 73 01/18/23 03:42 97.0 F L 73 14 179/88 H 92 01/18/23 02:00 71 01/18/23 00:00 94 Room Air 01/18/23 00:00 72 01/17/23 23:21 97.3 F L 75 16 159/89 H 94 01/17/23 22:00 75 01/17/23 20:00 91 Room Air 01/17/23 20:00 75 01/17/23 20:00 97.3 F L 74 20 156/95 H 91 01/17/23 20:04 96 Room Air 01/17/23 16:00 73 20 96 High Flow Therapy with Tr 0 01/17/23 16:00 73 01/17/23 16:00 98.3 F 73 20 172/100 H 97 Intake/Output Intake/Output: Intake & Output 01/15/23 01/16/23 01/17/23 01/18/23 23:59 23:59 23:59 23:59 Intake Total 527 709 5820 Output Total 3500 3000 Balance -3350 -2040 1030 Meds/Results Medications: Active Medications Generic Name Dose Route Start Last Admin Trade Name David PRN Reason Stop Dose Admin Acetaminophen 650 mg 01/16/23 23:24 Acetaminophen 325 Mg Tablet PO Q6H PRN Mild Pain (1-3) or Fever Alprazolam 1 mg 01/16/23 23:26 01/17/23 21:04 Alprazolam (*Crx) 0.5 Mg Tablet PO 1 mg BID PRN Administration Anxiety Aspirin 81 mg 01/17/23 09:00 01/18/23 07:57 Aspirin 81 Mg Enteric Tablet PO 81 mg DAILY YOLANDA Administration Atorvastatin Calcium 40 mg 01/17/23 09:00 01/18/23 07:56 Atorvastatin 40 Mg Tablet PO 40 mg DAILY YOLANDA Administration Clonidine HCl 0.2 mg
--- NOTE | 2023-01-18 12:47 | P.PNNP_ITS ---
Progress Note: A&P Assessment and Plan (1) End stage renal disease: Code(s): N18.6 - End stage renal disease Status: Chronic Assessment and Plan: * HD tomorrow and continue M/W/F dialysis schedule * follow electrolytes, volume status, and clearanc (2) Hyperkalemia: Code(s): E87.5 - Hyperkalemia Status: Acute Assessment and Plan: * resolved * due to missed dialysis treatments * HD treatmens have stabilizd e this issue * follow trend (3) Volume overload: Code(s): E87.70 - Fluid overload, unspecified Status: Acute Assessment and Plan: * improving * due to missed dialysis treatments * fluid removal with dialysis * follow volume status (4) Hypertensive urgency: Code(s): I16.0 - Hypertensive urgency Status: Acute Assessment and Plan: * better * due to missed BP medications as well as dialysis * home medications resumed * fluid rmeoval with dialysis may help * adjust/titrate BP medications as needed - increased nifedipine to 90mg qday today (5) Anemia: Code(s): D64.9 - Anemia, unspecified Status: Chronic Assessment and Plan: * due to ESRD * dose with Epogen with HD * follow H/H (6) Type 1 diabetes mellitus: Code(s): E10.9 - Type 1 diabetes mellitus without complications Status: Chronic Assessment and Plan: * follow accuchecks * glyceming control per hospitalists Will continue to follow. Subjective Date/time seen: 01/18/23 12:47 Tolerated dialysis treatment yesterday without any issues or problems; seem frustrated by his situation (issues with travel to dialysis, lack of medications, no current home...etc); no apparent distress voiced at the time of my visit; BP still fluctuating (although stress may be playing a role). Exam Narrative: General: WD/WN male in NAD Heart: normal S1 and S2; no rub Lungs: decrease at bases Abdomen: soft, nontender, nondistended, positive bowel sounds Extremities: no cyanosis or clubbing; no edema Skin: warm and intact Objective Data Vital Signs Vital Signs: Vital Signs Temp Pulse Resp BP Pulse Ox O2 Del Method O2 Flow Rate 01/18/23 12:00 75 14 Room Air 01/18/23 12:00 75 01/18/23 12:00 98.5 F 76 20 187/107 H 98 01/18/23 08:00 75 16 Room Air 01/18/23 10:00 75 01/18/23 08:00 73 01/18/23 08:00 97.5 F L 70 16 177/82 H 97 01/18/23 08:18 96 Room Air 01/18/23 07:54 71 01/18/23 06:00 71 01/18/23 04:00 94 Room Air 01/18/23 04:00 73 01/18/23 03:42 97.0 F L 73 14 179/88 H 92 01/18/23 02:00 71 01/18/23 00:00 94 Room Air 01/18/23 00:00 72 01/17/23 23:21 97.3 F L 75 16 159/89 H 94 01/17/23 22:00 75 01/17/23 20:00 91 Room Air 01/17/23 20:00 75 01/17/23 20:00 97.3 F L 74 20 156/95 H 91 01/17/23 20:04 96 Room Air 01/17/23 16:00 73 20 96 High Flow Therapy with Tr 0 01/17/23 16:00 73 01/17/23 16:00 98.3 F 73 20 172/100 H 97 Intake/Output Intake/Output: Intake & Output
[2023-01-18 16:44] LABS: Glucose Point of Care 169 mg/dl (65-105)
--- NOTE | 2023-01-18 17:41 | PC.NURSE ---
Patient took off telemetry box and refusing staff to place monitor back on. Has orders for telemetry so I contacted Hospitalist Dr. Cao and made him aware that patient will not wear telemetry box and is refusing medications.
[2023-01-18 20:10] LABS: Glucose Point of Care 241 mg/dl (65-105)
--- NOTE | 2023-01-18 20:24 | PC.NURSE ---
Patient still refusing to wear tele monitor this shift. Patient also refusing heparin for DVT prophylaxis. Pt educated on need for interventions and risks of refusal. Patient still refused. Lydia notified.
[2023-01-18] MEDS: ALPRAZolam (*CRX) 0.5 MG TABLET 1 MG PO (21:32)
[2023-01-19] VITALS (22 sets, daily range): BP systolic 109–171; BP diastolic 54–99; PULSE 69–79; RESP 16–20; TEMP 36.3–36.9; O2SAT 90–96
--- NOTE | 2023-01-19 04:31 | PC.NURSE ---
pt refuses AM labs, said can draw blood with dialysis today.
[2023-01-19 08:10] LABS: Glucose Point of Care 282 mg/dl (65-105)
[2023-01-19] MEDS: hydrOXYzine pamoate 25 MG CAPSULE PO (08:13)
[2023-01-19] MEDS: GABAPENTIN 300 MG CAPSULE PO (08:14)
[2023-01-19] MEDS: NIFEdipine 30 MG TAB.ER.24 90 MG PO (08:14)
[2023-01-19] MEDS: cloNIDine HCL 0.2 MG TABLET PO ×2 (08:14→17:08)
[2023-01-19] MEDS: hydrALAZINE HCL 50 MG TABLET 100 MG PO ×2 (08:14→17:08)
[2023-01-19] MEDS: METOPROLOL SUCCINATE EXT REL 100 MG TABCR PO (08:15)
[2023-01-19] MEDS: ATORVASTATIN 40 MG TABLET PO (08:15)
[2023-01-19] MEDS: FUROSEMIDE 80 MG TABLET PO (08:15)
[2023-01-19] MEDS: minoxidiL 2.5 MG TABLET 5 MG PO ×2 (08:15→17:08)
[2023-01-19] MEDS: ASPIRIN 81 MG ENTERIC TABLET PO (08:15)
[2023-01-19] MEDS: SEVELAMER CARBONATE 800 MG TABLET PO ×2 (08:15→17:08)
[2023-01-19] MEDS: TOPIRAMATE 25 MG TABLET 50 MG PO ×2 (08:15→20:07)
[2023-01-19] MEDS: LOSARTAN POTASSIUM 50 MG TABLET PO (08:15)
[2023-01-19] MEDS: INSULIN ASPART (*BKC) 100 UNITS/ML SUB-Q ×2 (08:18→08:19)
[2023-01-19] MEDS: INSULIN GLARGINE (*BKC) 100 UNITS/ML 12 UNITS SUB-Q (08:20)
[2023-01-19 11:23] LABS: Hematocrit 27.6 % (42.0-52.0); Hemoglobin 8.7 g/dL (14.0-18.0); Mean Corpuscular HGB Conc 31.5 g/dl (32-36); Mean Corpuscular Hemoglobin 28.8 pg (26-34); Mean Corpuscular Volume 91.4 fl (80-100); Mean Platelet Volume 10.9 fl (7.4-10.4); Platelet Count Result 252 k/mm3 (150-375); Red Blood Count 3.02 M/mm3 (4.6-6.20); Red Cell Distribution Width 14.9 % (11.5-14.5)
--- NOTE | 2023-01-19 11:32 | PM.IMPN ---
Progress Note: A&P Assessment and Plan (1) Volume overload: Code(s): E87.70 - Fluid overload, unspecified Status: Acute Assessment and Plan: Continue hemodialysis as needed. (2) Hypertensive urgency: Code(s): I16.0 - Hypertensive urgency Status: Acute Assessment and Plan: Improved after starting hemodialysis (3) Heart failure, type unknown: Code(s): I50.9 - Heart failure, unspecified Status: Acute (4) Hyperkalemia: Code(s): E87.5 - Hyperkalemia Status: Acute Assessment and Plan: Monitor electrolytes (5) End-stage renal disease on hemodialysis: Code(s): N18.6 - End stage renal disease; Z99.2 - Dependence on renal dialysis Status: Acute (6) Type 1 diabetes mellitus: Code(s): E10.9 - Type 1 diabetes mellitus without complications Status: Chronic Subjective Date/time seen: 01/19/23 11:32 No new complaints Exam Narrative: General: Chronically ill-appearing gentleman sitting up in bed in no acute distress. Weight: 75.7 kg. BMI: 23.9. HEENT: PERRL, EOMI. Sclera anicteric. Oral mucosa moist. Neck: Supple. Tracheostomy in place. Respiratory: Respirations are nonlabored and he is speaking in full sentences. Lung sounds are a bit diminished at the bases but are otherwise clear to auscultation. Cardiovascular: Regular rate and rhythm with S1-S2. Chest: Dialysis catheter in the right anterior chest. Gastrointestinal: Abdomen is soft, nontender, and nondistended with positive bowel sounds. Skin: Warm and dry. No rash or lesions on limited exam. Extremities: No cyanosis or clubbing. 2+ pitting edema up to the knees. No palpable knots or cords. Peripheral pulses palpable. Neurological: Alert. Cranial nerves 2-12 are grossly intact.No gross focal deficits to casual conversation. Psychiatric: Pleasant and cooperative with normal mood and affect. Judgment and insight intact. Objective Data Vital Signs Vital Signs: Vital Signs - 24 hr 01/18/23 12:00 01/18/23 12:00 01/18/23 12:00 Temperature 98.5 F Pulse Rate 76 75 75 Respiratory Rate 20 14 Blood Pressure 187/107 H Pulse Oximetry 98 Oxygen Delivery Room Air Fraction of Inspired Oxygen 01/18/23 16:00 01/18/23 14:00 01/18/23 16:00 Temperature 97.6 F Pulse Rate 72 70 71 Respiratory Rate 20 Blood Pressure 159/85 H Pulse Oximetry 95 Oxygen Delivery Fraction of Inspired Oxygen 01/18/23 16:00 01/18/23 20:00 01/18/23 20:00 Temperature 97.8 F Pulse Rate 71 74 Respiratory Rate 20 20 Blood Pressure 144/89 H Pulse Oximetry 95 96 94 Oxygen Delivery Room Air Room Air Fraction of Inspired Oxygen 21 01/18/23 23:58 01/19/23 00:00 01/19/23 03:38 Temperature 97.6 F 97.6 F Pulse Rate 71 73 Respiratory Rate 20 20 Blood Pressure 144/84 H 118/66 Pulse Oximetry 94 90 Oxygen Delivery Room Air Fraction of Inspired Oxygen 01/19/23 04:00 01/19/23 08:15 01/19/23 08:00 Temperature 98.4 F Pulse Rate 72 74 Respiratory Rate 16 Blood Pressure 160/93 H Pulse Oximetry 93 Oxygen Delivery Room Air Fraction of Inspired Oxygen 01/19/23 10:54 01/19/23 11:00 01/19/23 11:20 Temperature Pulse Rate 78 77 75 Respiratory Rate Blood Pressure 171/97 H 163/95 H 144/88 H Pulse Oximetry Oxygen Delivery Fraction of Inspired Oxygen Intake/Output Intake/Output: Intake & Output 01/16/23 01/17/23 01/18/23 01/19/23 23:59 23:59 23:59 23:59 Intake Total 536 806 0143 1460 Output Total 3500 3000 0 Balance -3350 -2040 1510 1460 Meds/Results Medications: Active Medications Generic Name Dose Route Start Last Admin Trade Name Freq PRN Reason Stop Dose Admin Acetaminophen 650 mg 01/16/23 23:24 Acetaminophen 325 Mg Tablet PO Q6H PRN Mild Pain (1-3) or Fever Alprazolam 1 mg 01/16/23 23:26 01/18/23 21:32 Alprazolam (*Crx) 0.5 Mg Tablet PO 1 mg BID PRN Administr
[2023-01-19 11:34] LABS: Albumin Level 4.1 g/dL (3.5-5.1); Anion Gap 10 mmol/L (8-16); Blood Urea Nitrogen 64 mg/dL (9-20); Calcium 8.1 mg/dL (8.4-10.2); Carbon Dioxide 28 mmol/L (22-30); Chloride 94 mmol/L (98-107); Estimated CRCL calculation 11 ml/min; Estimated Glomerular Filt Rate 7; Glucose 235 mg/dL (65-110); Phosphorus 5.9 mg/dL (2.5-4.5); Potassium 5.3 mmol/L (3.4-5.0); Sodium 132 mmol/L (137-145)
--- NOTE | 2023-01-19 11:56 | PM.PNNEP ---
Progress Note: A&P Assessment and Plan (1) End stage renal disease: Code(s): N18.6 - End stage renal disease Status: Chronic Assessment and Plan: HD today and continue M/W/F dialysis schedule follow electrolytes, volume status, and clearanc (2) Hyperkalemia: Code(s): E87.5 - Hyperkalemia Status: Acute Assessment and Plan: resolved due to missed dialysis treatments HD treatmens have stabilized this issue follow trend (3) Volume overload: Code(s): E87.70 - Fluid overload, unspecified Status: Acute Assessment and Plan: improving due to missed dialysis treatments fluid removal with dialysis follow volume status (4) Hypertensive urgency: Code(s): I16.0 - Hypertensive urgency Status: Acute Assessment and Plan: blood pressure doing better due to missed BP medications as well as dialysis home medications resumed fluid removal with dialysis may help adjust/titrate BP medications as needed (5) Anemia: Code(s): D64.9 - Anemia, unspecified Status: Chronic Assessment and Plan: due to ESRD dose with Epogen with HD follow H/H (6) Type 1 diabetes mellitus: Code(s): E10.9 - Type 1 diabetes mellitus without complications Status: Chronic Assessment and Plan: follow accuchecks glyceming control per hospitalists Will continue to follow. Subjective Date/time seen: 01/19/23 11:56 Tolerating dialysis treatment at the time of my visit (seen on HD at 11:45AM); reports severe anxiety/panic with regard to the fact he thinks the hospital is going to kick out today; otherwise, no acute distress noted. Exam Narrative: General: WD/WN male in NAD Heart: normal S1 and S2; no rub Lungs: decreased at bases Abdomen: soft, nontender, nondistended, positive bowel sounds Extremities: no cyanosis or clubbing; no edema Skin: no rash Objective Data Vital Signs Vital Signs: Vital Signs Temp Pulse Resp BP Pulse Ox O2 Del Method FiO2 01/19/23 11:20 75 144/88 H 01/19/23 11:00 77 163/95 H 01/19/23 11:40 77 146/88 H 01/19/23 10:44 97.9 F 76 20 159/92 H 01/19/23 10:54 78 171/97 H 02/27/23 08:00 98.4 F 74 16 160/93 H 93 01/19/23 08:15 72 01/19/23 04:00 Room Air 01/19/23 03:38 97.6 F 73 20 118/66 90 01/19/23 00:00 Room Air 01/18/23 23:58 97.6 F 71 20 144/84 H 94 01/18/23 20:00 94 Room Air 01/18/23 20:00 97.8 F 74 20 144/89 H 96 01/18/23 16:00 71 20 95 Room Air 21 01/18/23 16:00 71 01/18/23 14:00 70 01/18/23 16:00 97.6 F 72 20 159/85 H 95 Intake/Output Intake/Output: Intake & Output 01/16/23 01/17/23 01/18/23 01/19/23 23:59 23:59 23:59 23:59 Intake Total 615 340 2688 1460 Output Total 3500 3000 0 Balance -3350 -2040 1510 1460 Meds/Results Medications: Active Medications Generic Name Dose Route Start Last Admin Trade Name Freq PRN Reason Stop Dose Admin Acetaminophen 650 mg 01/16/23 23:24 Acetaminophen 325 Mg Tablet PO Q6H PRN Mild Pain (1-3) or Fever Alprazolam 1 mg 01/16/23 23:26 01/18/23 21:32 Alprazolam (*Crx) 0.5 Mg Tablet PO 1 mg BID PRN Administration Anxiety Aspirin 81 mg 01/17/23 09:00 01/19/23 08:15 Aspirin 81 Mg Enteric Tablet PO 81 mg DAILY YOLANDA Administration Atorvastatin Calcium 40 mg 01/17/23 09:00 01/19/23 08:15 Atorvastatin 40 Mg Tablet PO 40 mg DAILY YOLANDA Administration Clonidine HCl 0.2 mg 01/17/23 09:00 01/19/23 08:14 Clonidine Hcl 0.2 Mg Tablet PO 0.2 mg BID YOLANDA Administration Dextrose 12.5 gm 01/16/23 23:24 Dextrose 50% 25 Gm/50 Ml Syringe IV PUSH PRN PRN Hypoglycemia Protocol Epoetin Adelso-epbx 10,000 units 01/19/23 20:00 Epoetin Adelso-Epbx 10,000 Units/Ml Vial IV PUSH 01/19/23 20:01 ONCE ONE
--- NOTE | 2023-01-19 11:56 | P.PNNP_ITS ---
Progress Note: A&P Assessment and Plan (1) End stage renal disease: Code(s): N18.6 - End stage renal disease Status: Chronic Assessment and Plan: * HD today and continue M/W/ dialysis schedule * follow electrolytes, volume status, and clearanc (2) Hyperkalemia: Code(s): E87.5 - Hyperkalemia Status: Acute Assessment and Plan: * resolved * due to missed dialysis treatments * HD treatmens have stabilized this issue * follow trend (3) Volume overload: Code(s): E87.70 - Fluid overload, unspecified Status: Acute Assessment and Plan: * improving * due to missed dialysis treatments * fluid removal with dialysis * follow volume status (4) Hypertensive urgency: Code(s): I16.0 - Hypertensive urgency Status: Acute Assessment and Plan: * blood pressure doing better * due to missed BP medications as well as dialysis * home medications resumed * fluid removal with dialysis may help * adjust/titrate BP medications as needed (5) Anemia: Code(s): D64.9 - Anemia, unspecified Status: Chronic Assessment and Plan: * due to ESRD * dose with Epogen with HD * follow H/H (6) Type 1 diabetes mellitus: Code(s): E10.9 - Type 1 diabetes mellitus without complications Status: Chronic Assessment and Plan: * follow accuchecks * glyceming control per hospitalists Will continue to follow. Subjective Date/time seen: 01/19/23 11:56 Tolerating dialysis treatment at the time of my visit (seen on HD at 11:45AM); reports severe anxiety/panic with regard to the fact he thinks the hospital is going to kick out today; otherwise, no acute distress noted. Exam Narrative: General: WD/WN male in NAD Heart: normal S1 and S2; no rub Lungs: decreased at bases Abdomen: soft, nontender, nondistended, positive bowel sounds Extremities: no cyanosis or clubbing; no edema Skin: no rash Objective Data Vital Signs Vital Signs: Vital Signs Temp Pulse Resp BP Pulse Ox O2 Del Method FiO2 01/19/23 11:20 75 144/88 H 01/19/23 11:00 77 163/95 H 01/19/23 11:40 77 146/88 H 01/19/23 10:44 97.9 F 76 20 159/92 H 01/19/23 10:54 78 171/97 H 01/19/23 08:00 98.4 F 74 16 160/93 H 93 01/19/23 08:15 72 01/19/23 04:00 Room Air 01/19/23 03:38 97.6 F 73 20 118/66 90 01/19/23 00:00 Room Air 01/18/23 23:58 97.6 F 71 20 144/84 H 94 01/18/23 20:00 94 Room Air 01/18/23 20:00 97.8 F 74 20 144/89 H 96 01/18/23 16:00 71 20 95 Room Air 01/18/23 16:00 71 01/18/23 14:00 70 01/18/23 16:00 97.6 F 72 20 159/85 H 95 Intake/Output Intake/Output: Intake & Output 01/16/23 01/17/23 01/18/23 01/19/23 23:59 23:59 23:59 23:59 Intake Total 962 884 3328 1460 Output Total 3500 3000 0 Balance -3350 -2040 1510 1460 Meds/Results Medications: Active Medications Generic Name Dose Route Start Last Admin Trade Name Freq PRN Reason Stop Dose Admin Acetaminophen 650 m
[2023-01-19] MEDS: EPOETIN ALFA-EPBX 10,000 UNITS/ML VIAL 10000 UNITS IV PUSH (12:03)
[2023-01-19] MEDS: HEPARIN SODIUM 1,000 UNITS/ML VIAL 4000 UNITS (12:05)
[2023-01-19] MEDS: HEPARIN SODIUM 1,000 UNITS/ML VIAL 3000 UNITS (12:06)
[2023-01-19 12:26] LABS: Glucose Point of Care 184 mg/dl (65-105)
--- NOTE | 2023-01-19 12:52 | P.CDI_ITS ---
CDI Query Clarified Diagnosis Clarified Diagnosis: Heart failure noted on the assessment and plan. Documented history of CHF. Patient takes Lasix as a home medication. Patient receiving Lasix. Edema noted in the documentation. Chest Xray from 01/16/23 notes pulmonary edema and pleural effusion. Please specify type and acuity of heart failure if known. * Acute * Chronic * Acute on Chronic * Unknown * Systolic * Diastolic * Combined Systolic and Diastolic * Unknown
[2023-01-19 17:27] LABS: Glucose Point of Care 189 mg/dl (65-105)
[2023-01-19] MEDS: ALPRAZolam (*CRX) 0.5 MG TABLET 1 MG PO (20:07)
[2023-01-19 20:26] LABS: Glucose Point of Care 242 mg/dl (65-105)
[2023-01-20 08:00] VITALS: BP 169/99; PULSE 76; RESP 18; TEMP 36.6; O2SAT 96
[2023-01-20 08:14] LABS: Glucose Point of Care 201 mg/dl (65-105)
[2023-01-20] MEDS: INSULIN ASPART (*BKC) 100 UNITS/ML SUB-Q ×4 (08:15→12:07)
[2023-01-20] MEDS: ASPIRIN 81 MG ENTERIC TABLET PO (08:24)
[2023-01-20] MEDS: minoxidiL 2.5 MG TABLET 5 MG PO (08:24)
[2023-01-20] MEDS: hydrOXYzine pamoate 25 MG CAPSULE PO (08:24)
[2023-01-20] MEDS: ATORVASTATIN 40 MG TABLET PO (08:24)
[2023-01-20] MEDS: GABAPENTIN 300 MG CAPSULE PO (08:24)
[2023-01-20] MEDS: TOPIRAMATE 25 MG TABLET 50 MG PO (08:25)
[2023-01-20] MEDS: hydrALAZINE HCL 50 MG TABLET 100 MG PO ×2 (08:26→12:10)
[2023-01-20] MEDS: LOSARTAN POTASSIUM 50 MG TABLET PO (08:26)
[2023-01-20] MEDS: FUROSEMIDE 80 MG TABLET PO (08:26)
[2023-01-20] MEDS: cloNIDine HCL 0.2 MG TABLET PO (08:26)
[2023-01-20] MEDS: SEVELAMER CARBONATE 800 MG TABLET PO ×2 (08:26→12:10)
[2023-01-20] MEDS: NIFEdipine 30 MG TAB.ER.24 90 MG PO (08:27)
[2023-01-20 08:28] VITALS: PULSE 75
[2023-01-20] MEDS: METOPROLOL SUCCINATE EXT REL 100 MG TABCR PO (08:28)
--- NOTE | 2023-01-20 11:24 | PM.DS ---
DS: Admitting Diagnosis Discharge Date January 20, 2023 Admitting Diagnosis End-stage renal disease DS: Discharge Diagnosis Discharge Diagnosis (1) Volume overload: Code(s): E87.70 - Fluid overload, unspecified Status: Acute Assessment and Plan: Continue hemodialysis as needed. (2) Hypertensive urgency: Code(s): I16.0 - Hypertensive urgency Status: Acute Assessment and Plan: Improved after starting hemodialysis (3) Heart failure, type unknown: Code(s): I50.9 - Heart failure, unspecified Status: Acute (4) Hyperkalemia: Code(s): E87.5 - Hyperkalemia Status: Acute Assessment and Plan: Monitor electrolytes (5) End-stage renal disease on hemodialysis: Code(s): N18.6 - End stage renal disease; Z99.2 - Dependence on renal dialysis Status: Acute (6) Type 1 diabetes mellitus: Code(s): E10.9 - Type 1 diabetes mellitus without complications Status: Chronic DS: Summary Hospital Course Hospital Course: Admitted for noncompliance of HD - volume overload Once he resumed HD his symptoms improved, he can be dc and fu with nehprology. Time Spent with Patient Time attestation: Total time spent providing and/or coordinating discharge services: Exam Narrative: General: Chronically ill-appearing gentleman sitting up in bed in no acute distress. Weight: 75.7 kg. BMI: 23.9. HEENT: PERRL, EOMI. Sclera anicteric. Oral mucosa moist. Neck: Supple. Tracheostomy in place. Respiratory: Respirations are nonlabored and he is speaking in full sentences. Lung sounds are a bit diminished at the bases but are otherwise clear to auscultation. Cardiovascular: Regular rate and rhythm with S1-S2. Chest: Dialysis catheter in the right anterior chest. Gastrointestinal: Abdomen is soft, nontender, and nondistended with positive bowel sounds. Skin: Warm and dry. No rash or lesions on limited exam. Extremities: No cyanosis or clubbing. 2+ pitting edema up to the knees. No palpable knots or cords. Peripheral pulses palpable. Neurological: Alert. Cranial nerves 2-12 are grossly intact.No gross focal deficits to casual conversation. Psychiatric: Pleasant and cooperative with normal mood and affect. Judgment and insight intact. DS: Data Data Completed and Pending Labs on day of discharge: Labs from last 24 hours 01/20/23 01/19/23 01/19/23 07:55 20:04 16:38 WBC RBC Hgb Hct MCV MCH MCHC RDW Plt Count MPV Sodium Potassium Chloride Carbon Dioxide Anion Gap BUN Creatinine Estim Creat Clear Calc Estimated GFR Glucose POC Capillary Glucose 201 H 242 H 189 H Calcium Phosphorus Albumin 01/19/23 01/19/23 01/19/23 11:41 11:16 11:15 WBC 6.0 RBC 3.02 L Hgb 8.7 L Hct 27.6 L MCV 91.4 MCH 28.8 MCHC 31.5 L RDW 14.9 H Plt Count 252 MPV 10.9 H Sodium 132 L Potassium 5.3 H Chloride 94 L Carbon Dioxide 28 Anion Gap 10 BUN 64 H D Creatinine 8.60 H Estim Creat Clear Calc 11 Estimated GFR 7 L Glucose 235 H POC Capillary Glucose 184 H Calcium 8.1 L Phosphorus 5.9 H Albumin 4.1 Discharge Plan Discharge Attending physician on discharge: Cesar Cao Consulting providers: Sundar Krause ; Drake Ellis Discharging Clinician: Cesar Cao Patient Disposition: Home, Self-Care Activity: no preference Diet: as tolerated Patient Instructions: Antibiotic Form Stand Alone Forms: General Discharge Information Follow-up/Referrals: Drake Ellis MD [Physician] - PHYSICIAN NOT ON STAFF,NONSTAFF [Primary Care Provider] - Discharge Medications: Continued alprazolam 1 mg tablet 1 mg PO PRN PRN (Reason: Anxiety) aspirin 81 mg tablet,delayed release (DR/EC) 81 mg PO DAILY atorvastatin 40 mg tablet 40 mg PO DAILY clonidine
[2023-01-20 12:02] LABS: Glucose Point of Care 260 mg/dl (65-105)
[2023-01-20] MEDS: ACETAMINOPHEN 325 MG TABLET 650 MG PO (12:04)
[2023-01-20] MEDS: INSULIN GLARGINE (*BKC) 100 UNITS/ML 12 UNITS SUB-Q (12:06)
--- NOTE | 2023-01-20 13:18 | PC.NURSE ---
I Mel Lanier RN agree with charting done by Student Anni Ventura on 01/20/23
== END 2023-01-20 14:19 | disposition home or self-care (01) | DRG 640 ==
LOC: ANHED 12:24 → ANHIMU 13:10
PROVIDERS: Emergency Medicine; Internal Medicine Nephrology; Physician Assistant; Admitting Provider Internal Medicine; Emergency Provider Physician Assistant; Visit Provider Chiropractor
DX: E87.79 Other fluid overload (principal); N18.6 End stage renal disease; I13.2 Hypertensive heart and chronic kidney disease with heart failure and with stage 5 chronic kidney disease, or end stage renal disease; E10.22 Type 1 diabetes mellitus with diabetic chronic kidney disease; I16.0 Hypertensive urgency; I50.9 Heart failure, unspecified; Z20.822 Contact with and (suspected) exposure to COVID-19; E10.65 Type 1 diabetes mellitus with hyperglycemia; E87.5 Hyperkalemia; D63.1 Anemia in chronic kidney disease; F41.9 Anxiety disorder, unspecified; F32.A Depression, unspecified; Z91.15 Patient's noncompliance with renal dialysis; Z99.2 Dependence on renal dialysis; Z86.73 Personal history of transient ischemic attack (TIA), and cerebral infarction without residual deficits; Z87.891 Personal history of nicotine dependence
CPT/HCPCS: 36415; 70450; 71046; 80048; 80053; 80069; 82948; 83036; 83735; 84439; 84443; 84480; 85025; 85027; 86706; 87340; 87636; 93005; 96365; 99285; A4629; A9270; G0257; J0131; J0610; J1644; J1815; J7030; Q5105